=== PATIENT | male | born 1960 | race Caucasian/White ===

== ENCOUNTER → 2017-06-21 | Outpatient (CLI) | payer BC ==
[~2017-06-21] MED LIST: CRESTOR PO; FOSINOPRIL PO; PLAVIX PO; PROPRANOLOL PO
--- NOTE | ~2017-06-21 | CR63 ---
[facility] A Service of [facility] [place] RADIOLOGY TEXT RESULTS PATIENT: MICKI SHEPHERD LOCATION: [facility] : 58 UNIT #: [id number] AGE: [address]: Luly Painter MD SEX: M ORDER DR: [id number] [facility] [address] [place], [place] [address] [id number] O MR#: [id number] Acc #: [id number] NAME: MICKI SHEPHERD : 1960 SEX: M STUDY DATE/TIME: 06/21/2017 17:34 UNIT: [facility] ROOM: STUDY DESCRIPTION: CR Chest 2 View Attending Physician: Luly Painter M.D. Referring Physician: Luly Painter M.D. Ordering Physician: Luly Painter M.D. Primary Care Physician: Luly Painter M.D. MEDICAL IMAGING REPORT This report is preliminary unless electronic signature is present EXAM Chest, PA and lateral, 06/21/2017. HISTORY Cough, chest congestion, and shortness of breath and fever for 6 days. Benign essential hypertension. Smoking history. FINDINGS There is no prior chest radiograph for comparison. The heart is top normal in size. There is dense airspace consolidation in the posterior left upper lobe and left lower lobe characteristic of pneumonia. Radiographic follow up until resolution is strongly recommended to exclude underlying mass. Right lung is clear. Cardiac pacemaker leads right atrium and right ventricle with no pneumothorax. There are no pleural effusions. IMPRESSION Airspace consolidation in the left upper lobe and left lower lobe characteristic of pneumonia. Radiographic follow up until complete resolution is recommended. Dictated by... Reagan Maria M.D. THIS IS AN ELECTRONICALLY VERIFIED REPORT Reagan Maria M.D. at 06/22/2017 4:01 PM POLINA/joe TD: 06/22/2017 10:32 JOB #: [id number] [facility] A Service of [facility] RADIOLOGY TEXT RESULTS PATIENT: MICKI SHEPHERD LOCATION: [facility] #: [id number] : 58 UNIT #: [id number] AGE: [address]: Luly Painter MD SEX: M ORDER DR: MEDICAL IMAGING REPORT Page 1 of 1 COPY
== END | disposition home or self-care (01) ==
LOC: CRAD 17:00
DX: J00 Acute nasopharyngitis [common cold] (principal)
CPT/HCPCS: 71020

== ENCOUNTER → 2017-06-29 | Outpatient (CLI) | payer BC ==
--- NOTE | ~2017-06-29 | CR63 ---
[facility] A Service of [facility] RADIOLOGY TEXT RESULTS PATIENT: MICKI SHEPHERD LOCATION: [facility] : 58 UNIT #: [id number] AGE: [address]: Luly Painter MD SEX: M ORDER DR: [id number] [facility] [address]. [place], [place] [address] [id number] O MR#: [id number] Acc #: [id number] NAME: MICKI SHEPHERD : 1960 SEX: M STUDY DATE/TIME: 06/29/2017 8:36 UNIT: [facility] ROOM: STUDY DESCRIPTION: CR Chest 2 View Attending Physician: Luly Painter M.D. Referring Physician: Luly Painter M.D. Ordering Physician: Luly Painter M.D. Primary Care Physician: Luly Painter M.D. MEDICAL IMAGING REPORT This report is preliminary unless electronic signature is present EXAM PA and lateral chest INDICATIONS Follow up pneumonia. COMPARISON 06/21/2017 FINDINGS Improved inspiratory volume. Persistent but decreased infiltrate within the left lower lobe, consistent with improving pneumonia. Continued followup to complete resolution recommended. No new infiltrates. Heart size stable. Pacemaker. IMPRESSION Persistent but improved left lower lobe infiltrate, consistent with improving pneumonia. Continued followup to complete clearing is recommended. Dictated by... Herbert Lang M.D. THIS IS AN ELECTRONICALLY VERIFIED REPORT Herbert Lang M.D. at 07/03/2017 7:20 AM KAMAR/sherita TD: 06/29/2017 09:53 JOB #: [id number] MEDICAL IMAGING REPORT Page 1 of 1 COPY
== END | disposition home or self-care (01) ==
LOC: CRAD 08:14
DX: J18.1 Lobar pneumonia, unspecified organism (principal); R91.8 Other nonspecific abnormal finding of lung field
CPT/HCPCS: 71020

== ENCOUNTER → 2017-07-09 | Outpatient (CLI) | payer BC ==
--- NOTE | ~2017-07-09 | CR63 ---
[facility] A Service of [facility] RADIOLOGY TEXT RESULTS PATIENT: MICKI SHEPHERD LOCATION: [facility] : 58 UNIT #: [id number] AGE: [address]: Luly Painter MD SEX: M ORDER DR: [id number] [place] [id number] [facility]. [place], [place] [address] [id number] O MR#: [id number] Acc #: [id number] NAME: MICKI SHEPHERD : 1960 SEX: M STUDY DATE/TIME: 07/09/2017 14:16 UNIT: [facility] ROOM: STUDY DESCRIPTION: CR Chest 2 View Attending Physician: Luly Painter M.D. Referring Physician: Luly Painter M.D. Ordering Physician: Luly Painter M.D. Primary Care Physician: Luly Painter M.D. MEDICAL IMAGING REPORT This report is preliminary unless electronic signature is present EXAM 2 views chest. HISTORY Pneumonia. Smoker, quit 10 years ago. 11 days symptoms of shortness of air, cough. TECHNIQUE PA and lateral radiographs the chest are presented. COMPARISON Comparison 06/29/2017. FINDINGS Dual lead cardiac pacemaker unchanged. Heart within normal limits of size. Lungs mildly hyperinflated. This may reflect some degree of underlying COPD in this patient with history of prior tobacco usage. There is no indication of acute infectious or inflammatory disease, pleural effusion or pneumothorax. No suspicious nodule. Visualized upper abdomen unremarkable. The visualized bony structures are unremarkable. Dictated by... Han Cao M.D. THIS IS AN ELECTRONICALLY VERIFIED REPORT Han Cao M.D. at 07/11/2017 2:25 PM ANNA/helena TD: 07/10/2017 10:49 JOB #: [id number] MEDICAL IMAGING REPORT [facility] A Service of [facility] RADIOLOGY TEXT RESULTS PATIENT: MICKI SHEPHERD LOCATION: [facility] : 58 UNIT #: [id number] AGE: [address]: Luly Painter MD SEX: M ORDER DR: Page 1 of 1 COPY
== END | disposition home or self-care (01) ==
LOC: CRAD 13:52
DX: J18.1 Lobar pneumonia, unspecified organism (principal)
CPT/HCPCS: 71020